=== PATIENT | female | born 1995 | race Caucasian/White ===

== ENCOUNTER 2023-01-14 13:50 | Day surgery (SDC) | payer BC ==
[2023-01-14 14:19] VITALS: BMI 26.4
== END 2023-01-14 15:26 | disposition home or self-care (01) ==
LOC: CSHLD/OP 13:50
PROVIDERS: ATTEND Obstetrics & Gynecology
DX: O36.5930 Maternal care for other known or suspected poor fetal growth, third trimester, not applicable or unspecified (principal); Z79.899 Other long term (current) drug therapy; Z3A.32 32 weeks gestation of pregnancy
CPT/HCPCS: 99282